=== PATIENT | female | born 1990 | race Caucasian/White ===

== ENCOUNTER 2017-04-24 14:00 | Inpatient (IN) | payer OTHER ==
[~2017-04-24] VITALS: Ht 160 cm; Wt 82.6 kg
--- NOTE | ~2017-04-24 | DS ---
Unit #: [id number] #: [id number] Patient: ROSARIO WHITESIDE [id number] [facility] [address] [place] [address] [id number] MR#: [id number] NAME: ROSARIO WHITESIDE ROOM: [facility] Age: 27 Sex: F Admission Date: 04/24/2017 : 1990 Discharge Date: 04/28/2017 Attending Physician: Michael Clemens M.D. Primary Care Physician: Generic Doctor DISCHARGE SUMMARY REASON FOR ADMISSION The patient is a 27-year-old white female admitted in a depressed phase of bipolar disorder. HOSPITAL COURSE The patient was admitted to the [facility] unit and placed on suicide precautions. She was begun on Lamictal 25 mg at nighttime, given her history of positive response to this medication. P.r.n. Vistaril and trazodone were also added. The patient reported a history of positive response to Topamax on 04/27/2017 and requested initiation of this medication. Additionally she reported a history of restless leg syndrome and was begun on Requip 0.25 mg at 8 p.m. She tolerated all of these medication changes without complaint and by 04/28/2017 was in bright spirits and requesting discharge and discharge was ordered. DISCHARGE DIAGNOSES Bipolar disorder, type 2, most recent episode depressed. Borderline personality traits. FOLLOWUP CARE She will follow [facility]. DISCHARGE MEDICATIONS 1. Lamictal 25 mg with titration to 100 mg per licensed prosthetist's directions for mood stabilization. 2. Topamax 25 mg q.a.m. for mood stabilization. 3. Requip 0.25 mg at 8 p.m. for restless leg syndrome. 4. Trazodone 50 mg 1-2 at nighttime p.r.n. insomnia. 5. Vistaril 50 mg q.4 h. p.r.n. anxiety. PROGNOSIS Considered fair. DIET AND ACTIVITY No dietary or physical restrictions placed on the patient at the time of discharge. Dictated by... Michael Clemens M.D. CB/johny Unit #: [id number] #: [id number] Patient: ROSARIO WHITESIDE TD: 04/30/2017 12:28 JOB #: [id number] DISCHARGE SUMMARY Page 1 of 1 X Michael Clemens MD X DISCHARGE SUMMARY
--- NOTE | ~2017-04-24 | HP ---
Unit #: [id number] #: [id number] Patient: ROSARIO WHITESIDE [id number] [place] [address] [id number] I MR#: [id number] NAME: ROSARIO WHITESIDE ROOM: P122 Age: 27 Sex: F Admission Date: 04/24/2017 : 1990 Attending Physician: Michael Clemens M.D. Admitting Physician: Michael Clemens M.D. Primary Care Physician: Generic Doctor Not In System HISTORY AND PHYSICAL HISTORY OF PRESENT ILLNESS The patient is a 27-year-old female admitted to [address] [place] [address] on 04/24/2017 for suicidal ideation. PAST MEDICAL HISTORY Patient denies. PAST SURGICAL HISTORY Cholecystectomy. ALLERGIES Penicillin. SOCIAL HISTORY She is employed as a beautician. She lives with a roommate. She smokes 1 pack of cigarettes daily and uses marijuana socially. FAMILY HISTORY Noncontributory. REVIEW OF SYSTEMS CONSTITUTIONAL: No fever or chills. HEENT: Denies any sore throat, ear pain or runny nose. CARDIOVASCULAR: Denies chest pain, irregular heart rhythm or palpitations. CHEST: Denies shortness of breath or cough. No hemoptysis. GASTROINTESTINAL: Denies nausea, vomiting, diarrhea or chronic constipation. ENDOCRINE: Denies history of increased thirst or urination. No recent significant weight loss or gain. GENITOURINARY: Denies dysuria, frequency, or hematuria. SKIN: Denies any rashes. HEMATOLOGIC: Denies history of increased bleeding or bruising. MUSCULOSKELETAL: Denies any hot, swollen joints. No generalized muscle pain. NEUROLOGIC: Denies problems with vision or speech. No frequent, severe headaches. No numbness, tingling or weakness in any extremities. Denies loss of bladder or bowel control. CURRENT MEDICATIONS Patient is not on any home medications. PHYSICAL EXAMINATION GENERAL: She is awake, alert, oriented, in no acute distress. Unit #: [id number] #: [id number] Patient: ROSARIO WHITESIDE VITAL SIGNS: Temperature 97.8, heart rate 66, respirations 18, blood pressure 111/74. HEIGHT: 5 feet 3. WEIGHT: 182 pounds. SKIN: Warm and dry without rash or lesion. HEENT: Normocephalic. TMs not viewed. Oral and nasal passages clear. Conjunctivae clear. PERRLA. EOMs intact. NECK: Supple without lymphadenopathy or thyromegaly. HEART: Regular rate and rhythm without murmur. LUNGS: Clear. ABDOMEN: Soft, nontender. : Not done. EXTREMITIES: No evidence of cyanosis, clubbing or edema. Moves all without focal deficit. NEUROLOGICAL: Grossly within normal limits. Cranial Nerves: II: Visual villatoro are intact. III, IV AND : Extraocular movements are intact. Pupils are equal, round and reactive to light. V: Facial sensation is grossly normal. VII: Facial movements and expression are normal. VIII: Auditory acuity grossly intact. IX, X: Uvula is midline. Phonation is normal. XI: Patient shrugs shoulders and turns head normally. XII: Tongue protrudes in the midline. Sensory and Motor Function: Sensory and motor sensation is grossly normal. Motor: moves all extremities well. Coordination: Gait is normal. Deep Tendon Reflexes: Intact. IMPRESSION 1. Psychiatric admission. 2. Nicotine dependence. RECOMMENDATIONS PSYCHIATRIC: Per psychiatrist. MEDICAL: No contraindication to participate in facility's activities. MEDICAL PROGNOSIS Good. MEDICAL CONDITION Stable. Dictated by... Arnaldo Armstrong/jacek TD: 04/24/2017 23:25 JOB #: [id number] Unit #: [id number] #: [id number] Patient: ROSARIO WHITESIDE HISTORY AND PHYSICAL Page 1 of 1 X DOMENICO ROMERO APRN HISTORY AND PHYSICAL
--- NOTE | ~2017-04-24 | PN ---
Unit #: [id number] #: [id number] Patient: ROSARIO WHITESIDE [id number] [facility] [address] [place] [address] [id number] MR#: [id number] NAME: ROSARIO WHITESIDE ROOM: P252 Age: 27 Sex: F Admission Date: 04/24/2017 : 1990 Attending Physician: Michael Clemens M.D. Admitting Physician: Michael Clemens M.D. Primary Care Physician: Amor Doctor Not In System [facility] PROGRESS NOTES DATE 04/26/2017 DISCUSSION The patient seems much brighter today. She is active within the therapeutic milieu and is reporting reduction in suicidal ideation. Dictated by... Michael Clemens M.D. CB/chel TD: 04/26/2017 13:06 JOB #: [id number] [facility] PROGRESS NOTES Page 1 of 1 X Michael Clemens MD X PROGRESS NOTE
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
--- NOTE | ~2017-04-24 | PN ---
Unit #: [id number] #: [id number] Patient: ROSARIO WHITESIDE [id number] [facility] [address] [place] [address] [id number] MR#: [id number] NAME: ROSARIO WHITESIDE ROOM: P252 Age: 27 Sex: F Admission Date: 04/24/2017 : 1990 Attending Physician: Michael Clemens M.D. Admitting Physician: Michael Clemens M.D. Primary Care Physician: Amor Doctor Not In System [facility] PROGRESS NOTES DATE 04/27/2017 DISCUSSION The patient is a bit brighter but reports that she has done well in the past with a combination of Lamictal and Topamax. I will go ahead and add Topamax 25 mg q a.m. as per her request. She is also complaining of some restless leg symptoms and I will start Requip 0.25 mg at 8 p.m. to address these symptoms. She is reporting reduction in suicidal ideation and should she sustain progress discharge could likely take place tomorrow. Dictated by... Michael Clemens M.D. CB/jorge TD: 04/27/2017 21:58 JOB #: [id number] [facility] PROGRESS NOTES Page 1 of 1 X Michael Clemens MD PROGRESS NOTE
[2017-04-25 09:33] LABS: BASOPHIL% 0.1 % (0-2.5); HEMATOCRIT 40.1 % (35.0-45.0); HEMOGLOBIN 13.4 gm/dL (12.0-16.0); LYMPHOCYTE# 3.8 X10e3 (1.0-3.5); MEAN CELL VOLUME 84.1 FL (83-96); MEAN CORPUSCULAR HEMOGLOBIN 28.2 PG (28-34); MEAN CORPUSCULAR HGB CONC 33.5 g/dL (30-36); MEAN PLATELET VOLUME 8.3 FL (6.5-11.5); MONOCYTE# 0.9 X10e3 (0-1.0); MONOCYTE% 6.2 % (3.0-12.0); NEUTROPHIL# 9.8 X10e3 (1.5-7.1); NEUTROPHIL% 67.7 % (40-75); PLATELET COUNT 325 X10e3 (140-420); RED BLOOD COUNT 4.77 X10e (3.90-5.30); RED CELL DISTRIBUTION WIDTH 14.2 % (11.0-15.5); WHITE BLOOD COUNT 14.5 X10e3 (4.0-10.5)
[2017-04-25 09:39] LABS: DIFF IND NO
[2017-04-25 09:46] LABS: URINE APPEARANCE CLEAR; URINE BILIRUBIN NEG (NEG); URINE BLOOD NEG (NEG); URINE COLOR YELLOW; URINE GLUCOSE NEG (NEG); URINE KETONE NEG (NEG); URINE LEUKOCYTE ESTERASE NEG (NEG); URINE NITRATE NEG (NEG); URINE PH 6.5 (5-8); URINE PROTEIN NEG (NEG); URINE SPECIFIC GRAVITY 1.009 (1.003-1.035); URINE UROBILINOGEN 0.2 MG/DL (NEG)
[2017-04-25 10:04] LABS: AMPHETAMINE NEG (NEG); BARBITURATES NEG (NEG); BENZODIAZEPINES NEG (NEG); COCAINE NEG (NEG); MARIJUANA POS (NEG); OPIATES NEG (NEG); TRICYCLIC ANTIDEPRESSANTS NEG (NEG); U METHADONE NEG (NEG)
[2017-04-25 11:22] LABS: ALBUMIN SERUM 3.6 g/dL (3.5-5.0); BILIRUBIN,TOTAL 0.3 mg/dL (0.2-2.0); CREATININE SERUM 0.6 mg/dL (0.6-1.4); GLOM FILT RATE Estimated 125.8 mL/min (>60); POTASSIUM 3.9 mmol/L (3.5-5.1); PROTEIN TOTAL SERUM 6.5 g/dL (6.0-8.3)
== END 2017-04-28 15:30 | disposition home or self-care (01) | DRG 885 ==
LOC: P1S 15:57 → P2L 15:57 → POF 15:57 → P2L 16:47 → P1S 17:09 → P2L 04-25 18:25
PROVIDERS: Specialist
DX: F31.81 Bipolar II disorder (principal); R45.851 Suicidal ideations; Z88.0 Allergy status to penicillin; Z90.49 Acquired absence of other specified parts of digestive tract; F17.210 Nicotine dependence, cigarettes, uncomplicated; F12.10 Cannabis abuse, uncomplicated
CPT/HCPCS: 80053; 80307; 81003; 84703; 85025